=== PATIENT | male | born 2000 | race Caucasian/White ===

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

== ENCOUNTER → 2018-02-04 | Outpatient (CLI) | payer OTHER ==
[~2018-02-04] MED LIST: KEPPRA 500MG500 MG PO
== END ==
LOC: COL.CARD 09:43
DX: G40.909 Epilepsy, unspecified, not intractable, without status epilepticus (principal)